=== PATIENT | male | born 1960 | race Caucasian/White ===

== ENCOUNTER 2020-12-03 09:20 | Outpatient (CLI) | payer BC ==
[~2020-12-03 09:20] MED LIST: LOSA100T14 PO; METF500T17 PO; OMEP40CA8 PO; PRAV80TA2 PO
== END 2020-12-03 23:59 | disposition home or self-care (01) ==
LOC: STAR 09:20
PROVIDERS: ATTEND Urology
DX: Z01.818 Encounter for other preprocedural examination (principal); C61 Malignant neoplasm of prostate; Z20.822 Contact with and (suspected) exposure to COVID-19
CPT/HCPCS: 93005; U0003; U0005

== ENCOUNTER 2020-12-09 10:19 | Observation (INO) | payer BC ==
[~2020-12-09] VITALS: Ht 167.6 cm; Wt 110.0 kg
[2020-12-09] MEDS ORDERED: FENTANYL PF 250 MCG/5ML ONE (10:36)
[2020-12-09] MEDS ORDERED: MIDAZOLAM 1 MG/ML, 2ML ONE (10:36)
[2020-12-09 10:46] VITALS: BP 143/100
[2020-12-09] MEDS ORDERED: CHLORHEXIDINE 15 ML UDC ONE (10:49)
[2020-12-09] MEDS ORDERED: BUPIVACAINE/PF 0.25% ONE (10:54)
[2020-12-09] MEDS ORDERED: OPIUM/BELLADONNA SUPP.RECT 16.2-60 MG ONE (10:55)
[2020-12-09] MEDS: LACTATED RINGERS 1,000 ML IV SCH ×2 (11:00→17:24)
[2020-12-09] MEDS ORDERED: CHLORHEXIDINE 15 ML UDC PO ONE (11:00)
[2020-12-09] MEDS ORDERED: BUPIVACAINE/PF-EPI 0.25% 1:200K INFIL ONE (12:08)
[2020-12-09] MEDS ORDERED: OPIUM/BELLADONNA SUPP.RECT 16.2-60 MG PR ONE (12:08)
[2020-12-09] MEDS ORDERED: LABETALOL 5MG/ML, 20ML IV PRN (13:30)
[2020-12-09] MEDS ORDERED: ALBUTEROL SULFATE 2.5 MG/3 ML NPPB PRN (13:30)
[2020-12-09] MEDS ORDERED: HYDROmorphone 1 MG/ML, 1ML INJ IVPush PRN (13:30)
[2020-12-09] MEDS ORDERED: PROMETHAZINE 25 MG/ML, 1ML IVPush PRN (13:30)
[2020-12-09] MEDS ORDERED: LORazepam 2 MG/ML, 1ML IVPush PRN (13:30)
[2020-12-09] MEDS ORDERED: OXYcodone 5 MG/5 ML ORAL.SOL UDC PO PRN (13:30)
[2020-12-09] MEDS ORDERED: METHOCARBAMOL 1,000 MG in DEXTROSE 5% 100 ML IV PRN (13:30)
[2020-12-09] MEDS ORDERED: MEPERIDINE/PF 25MG/0.5ML IVPush PRN (13:30)
[2020-12-09] MEDS ORDERED: ACETAMINOPHEN 325 MG TABLET PO PRN (13:30)
[2020-12-09] MEDS ORDERED: FENTANYL PF 100 MCG/2ML IV PRN (13:30)
[2020-12-09] MEDS ORDERED: hydrALAzine 20 MG/ML, 1ML IV PRN (13:30)
[2020-12-09] MEDS ORDERED: FENTANYL PF 100 MCG/2ML ONE (13:46)
[2020-12-09] MEDS ORDERED: ROCURONIUM 10MG/ML,5ML ONE (13:48)
[2020-12-09] MEDS ORDERED: LIDOCAINE-MPF 2% ,5ML ONE (13:48)
[2020-12-09] MEDS ORDERED: ONDANSETRON 2MG/ML, 2ML ONE (13:48)
[2020-12-09] MEDS ORDERED: CEFAZOLIN 1,000 MG ONE (13:48)
[2020-12-09] MEDS ORDERED: GLYCOPYRROLATE 0.2MG/1ML, 5ML ONE (13:48)
[2020-12-09] MEDS ORDERED: NEOSTIGMINE 1 MG/ML, 10ML ONE (13:48)
[2020-12-09] MEDS ORDERED: DEXAMETHASONE 4 MG/ML, 1ML ONE (13:48)
[2020-12-09] MEDS ORDERED: PROPOFOL 10 MG/ML, 20ML ONE (13:48)
[2020-12-09] MEDS ORDERED: MORPHINE SULFATE 4 MG/ML, 1ML IVPush PRN (16:00)
[2020-12-09] MEDS ORDERED: OXYcodone IR 5MG TABLET PO PRN (16:00)
[2020-12-09 19:29] VITALS: BP 153/96
[2020-12-10 00:41] VITALS: BP 135/82
[2020-12-10 04:25] VITALS: BP 130/81
[2020-12-10] MEDS ORDERED: OMEPRAZOLE 20 MG CAPSULE.DR PO SCH (06:00)
[2020-12-10 07:00] VITALS: BP 120/77
[2020-12-10] MEDS ORDERED: metFORMIN XR 500 MG TAB.ER.24H PO SCH (08:00)
[2020-12-10] MEDS ORDERED: LOSARTAN 100 MG TAB PO SCH (09:00)
[2020-12-10] MEDS ORDERED: PRAVASTATIN 40 MG TABLET PO SCH (09:00)
== END 2020-12-10 10:45 | disposition home or self-care (01) ==
LOC: OR 10:19 → 4NE 15:30 → OR 23:24
PROVIDERS: ADMIT Urology; ATTEND Urology
DX: C61 Malignant neoplasm of prostate (principal); K66.0 Peritoneal adhesions (postprocedural) (postinfection); E88.2 Lipomatosis, not elsewhere classified; I10 Essential (primary) hypertension; E11.9 Type 2 diabetes mellitus without complications; E78.00 Pure hypercholesterolemia, unspecified; E78.5 Hyperlipidemia, unspecified; N52.9 Male erectile dysfunction, unspecified; E06.3 Autoimmune thyroiditis; K21.9 Gastro-esophageal reflux disease without esophagitis; Z79.899 Other long term (current) drug therapy; Z87.891 Personal history of nicotine dependence
CPT/HCPCS: 55810; 82962; C1729; C1760; G0378; J0690; J1100; J2250; J2405; J2704; J2710; J3010; J3490; J7120